=== PATIENT | male | born 1990 | race African-American/Black ===

== ENCOUNTER 2025-06-24 22:01 | Outpatient (OUT) | payer OTHER, SELFPAY ==
--- OUTSIDE RECORDS SUMMARY | 2021-04-20 10:15 | XMS_ITS | Continuity of Care Document ---
Author Organization [facility] Address [address] [place] [address] Phone Care Team Providers Care Ict Development Manager Name Role Phone Marquise Santo Unavailable Unavailable Allergies, Adverse Reactions, Alerts Substance Reaction Status Criticality No Known Allergies Active No Inform ation Procedures Procedure Date COVID-19 Antigen Test Covid Testing [facility] OFFICE/OUTPATIENT VISIT, EST OFFICE/OUTPATIENT VISIT, EST HIV-1 Condoms [facility] METRONIDAZOL 500 MG (14 TABLETS) Jun Donation OFFICE/OUTPATIENT VISIT, NEW Advance Directives Directive Yes / No Effective Date File Name No Information Encounters Encounter Description Practice Location Reason(s) For Visit Diagnoses Date Provider Providers Copied on Encounter [facility], [address] [place] [address], [id number] , [place] tel:+ [phone] COVID [facility] Encounter for screening for COVID-19 1 Candi Jaramillo. [address] [place] [address], [id number] , [place]. tel:+ [phone] [facility], [address] [place] [address], [id number] , tel:+ [phone] [facility] f/u wheezing (chief complaint) Body mass index (BMI) 45.0-49.9, adultMaxillary sinusitis, unspecified chronicity 9 Chapito Duong. [address] [place] [address], [id number] , . tel:+ [phone] OFFICE/OUTPA TIENT VISIT, [facility], [address] [place] [address], [id number] , tel: [phone] [facility] sick visit (chief complaint) BronchitisAcute non-recurrent maxillary sinusitisBody mass index (BMI) 45.0-49.9, adult 9 [place] FELICITA Duong. [address] [place], [place], [id number] , [place]. tel: [phone] OFFICE/OUTPA TIENT VISIT, [facility], [address] [place] [address], [id number] , tel: [phone] [facility] screening (chief complaint) Contact w/ infection w/ a predominantly sexual mode of transmissionEncounter for screening for HIV 5 Marilynn Camacho. [address] [place] [address], [id number] , [place]. tel:+ [phone] OFFICE/OUTPA TIENT VISIT, [facility], [address] [place] [address], [id number] , tel:+ [phone] [facility] +Tb test (chief complaint) CoughNonspecific reaction to tuberculin test 3 Kingsley Kumari. [address] [place] [address], [id number] , [place]. Family History Family Member Type Diagnosis Age At Onset Mother Problem (finding) Alive and well Father Problem (finding) Alive and well Payers Payer name Insurance type Covered alliance party ID Robbie pengstacey(s) Marcela HICKS [id number] Social History Type Description Quantity Date Captured Comments Alcohol Use Details Unknown Caffeine Use Details Unknown Tobacco Use Status No Information Smoking Status No Information Sex Male Sexual Orientation Don't Know Gender Identity Male Chief Complaint And Reason For Visit No Information Reason For Referral Reason For Referral No Information Plan Of Treatment Date Type Action Status Goal Dietary management education , guidance, and counseling completed Goal Dietary management education , guidance, and counseling completed History Of Present Illness Encounter Date Complaint History Of Prese nt Illness f/u wheezing Pt here for f/u for wheezing. Pt states that things are better, pt denies any tightness in his chest but reports nasal congestion. Pt reports some fullness in the ears as well. Pt has no other concerns at this time. MY[facility] LPNPt was unable to roll picker Rx for Augmentin due to cost. sick visit Patient is here because he is congested for over 2 weeks. His mucus has been clear to yellow. He also feels a slight tightness in his chest. He has tried an OTC decongestive with no relief. NDilts, CMAComplains of facial pressure, nasal congestion, right ear pain, cough, and occasional chest tightness. Denies fever, denies SOB. Nonsmoker, non asthmatic. Denies chest pain. Concerns for URI unimproved with use of OTC medications. RGonzales NPC screening Reports partner was treated for trich here last week. Pt denies symptoms. Condoms requested and given. Declines flu shot. HIV screen done.FabriziobergerRN Functional Status Date Functional Assessmen t No Information Instructions Date Instruction Additional Infor katya Dietary management e ducation, guidance, and counseling Related to Body mass index (BMI) 45.0-49.9, adult Giving encouragement to exercise Related to Body mass index (BMI) 45.0-49.9, adult Giving encouragement to exercise Related to Body mass index (BMI) 45.0-49.9, adult Dietary management e ducation, guidance, and counseling Related to Body mass index (BMI) 45.0-49.9, adult Avoid sexual activit y while you await your test results. Related to Contact w/ infection w/ a predominantly sexual mode of transmission Assessments Type Assessment Date assessment Encounter for screening for COVI D- Patient Care Teams Name Effective Dates (start - stop) Status Members No Information
--- NOTE | 2025-06-24 | XR_ITS ---
The [address] [address] Patient Name: BRIAN STRAUSS MRN: [id number] date: 1990 Sex: M Assigned Patient Location: RAD Current Patient Location: [facility] Accession/Order Number: [id number] Exam Date: 06/24/2025 22:20 Report Date: 06/24/2025 22:50 At the request of: CESAR MONTENEGRO Procedure: XR elbow RT min 3V 3 views right elbow CLINICAL HISTORY: right elbow pain COMPARISON: None FINDINGS: Nondisplaced lucency involving the radial head neck junction suggestive of fracture. Suspected intra-articular extension. No additional fracture. No dislocation. XR/XR elbow RT min 3V IMPRESSION: FINDINGS SUSPICIOUS FOR NONDISPLACED RADIAL HEAD FRACTURE. Impression dictated by: Cristiano Carlson M.D. 06/24/2025 10:50 PM Dictation Location: [place] [address] Electronically authenticated by: [id number] Y Date: 06/24/2025 22:50
--- NOTE | 2025-06-24 | XR_ITS ---
The [place] [id number] Patient Name: BRIAN STRAUSS MRN: [id number] date: 1990 Sex: M Assigned Patient Location: RAD Current Patient Location: [facility] Accession/Order Number: [id number] Exam Date: 06/24/2025 22:20 Report Date: 06/24/2025 22:51 At the request of: CESAR MONTENEGRO Procedure: XR hip RT min 2V RIGHT HIP - 2 views: CLINICAL HISTORY: right hip pain COMPARISON: None FINDINGS: No fracture-dislocation. Soft tissues unremarkable. Joint spaces preserved. XR/XR hip RT min 2V IMPRESSION: NO ACUTE BONY INJURY. Impression dictated by: Cristiano Carlson M.D. 06/24/2025 10:51 PM Dictation Location: [place] [address] Electronically authenticated by: [id number] Y Date: 06/24/2025 22:51
--- OUTSIDE RECORDS SUMMARY | 2025-06-24 22:11 | XMS_ITS | Clinical Summary ---
Author Organization [facility] Address [address] [place] [address] Care Team Providers Care Supervisor [employer] Name Role Phone Dereck Jorgensen MD Primary Care Provider Allergies No known active allergies Medications MedicationSigDispense QuantityRefillsLast FilledStart DateEnd DateStatus metFORMIN (Glucophage) 500 MG tablet 1 (one) time each day at the same time.Active betamethasone valerate (Valisone) 0.1 % cream Indications:DermatitisApply topically 2 (two) times a day. 15 g 04/07/2023ctive methocarbamol (Robaxin) 750 MG tablet Indications:Strain of left trapezius muscle, initial encounterTake 1-2 tablets (750-1,500 mg) by mouth as needed at bedtime for muscle spasms for up to 7 days. 14 tablet 04/25/2023ctive Family History RelationNameStatusCommentsFatherAliveMotherAlive Social History Tobacco UseTypesPacks/DayYears UsedDateSmoking Tobacco: FormerCigarettes Smokeless Tobacco: Never Tobacco Cessation:Counseling Given: Not Answered Comments:1-5 years since last smoked Alcohol UseStandard Drinks/WeekCommentsYes0 (1 standard drink = 0.6 oz pure alcohol)caffeine: none teaSex and Gender InformationValueDate RecordedSex Assigned at BirthNot on fileLegal ExjAjzf4110/06/2022 7:21 PM EDTGender Identity Not on fileSexual OrientationNot on file Last Filed Vital Signs Vital SignReadingTime TakenCommentsBlood Jkrwaylt850/9010 1:32 PM EDT Qzmtb4943/08/2022 1:32 PM HJCIvfiejwdymq13.7 ??C (98 ??F)04/25/2023 1:32 PM EDT Respiratory Rate--Oxygen Xorwwqbkvn08%04/25/2023 1:32 PM EDTInhaled Oxygen Concentration--Ukyhft986 kg (318 lb)04/25/2023 1:32 PM XMQXfcofc253.8 cm (5' 10 )05/02/2021 12:00 PM EDTBody Mass Index45.6305/02/2021 12:00 PM EDT Plan of Treatment Not on file Insurance Care Teams Team MemberRelationshipSpecialtyStart DateEnd Date Dereck Jorgensen MD [address] [place] [id number] PCP - GeneralFamily Medicine04/07/23
== END 2025-06-24 22:02 | disposition home or self-care (01) ==
PROVIDERS: PCP Family Medicine; Visit Provider Family Medicine
DX: M25.551 Pain in right hip (principal); M25.521 Pain in right elbow
CPT/HCPCS: 73080; 73502